=== PATIENT | female | born 1970 | race Caucasian/White ===

== ENCOUNTER → 2023-12-06 15:35 | Outpatient (REF) | payer BC, SELFPAY | LOC: HWRAD 15:35 | PROVIDERS: ATTENDING PHYSICIAN Podiatrist Foot & Ankle Surgery; FAMILY PHYSICIAN Family Medicine | DX: M20.21 Hallux rigidus, right foot (principal) | CPT/HCPCS: 73630 ==

== ENCOUNTER → 2024-01-23 10:42 | Outpatient (REF) | payer BC, SELFPAY | LOC: HWRAD 10:42 | PROVIDERS: ATTENDING PHYSICIAN Podiatrist Foot & Ankle Surgery; FAMILY PHYSICIAN Family Medicine | DX: M20.21 Hallux rigidus, right foot (principal) | CPT/HCPCS: 73630 ==